=== PATIENT | female | born 1960 | race Asian ===

== ENCOUNTER 2017-03-21 12:44 | Inpatient (IN) | payer BC ==
[~2017-03-21] VITALS: Ht 157.5 cm; Wt 51.3 kg
[~2017-03-21 12:44] MED LIST: ATOR10TA15 PO; CIPR-9 PO; CYCL1TAB29 PO; GLUC15009 PO; MOBI15TA PO; MULT1TAB84 PO
[2017-03-22] MEDS ORDERED: TURM1TAB PO (12:03)
[2017-03-22] MEDS ORDERED: GABA100C4 PO (12:03)
[2017-03-22] MEDS ORDERED: CALC250T PO (12:03)
--- NOTE | 2017-03-23 17:06 | MH ---
cc: KAILASH BELTRAN MD, ROHIT DATE OF ADMISSION 03/24/2017 ADMISSION DIAGNOSIS Lumbar degenerative disk disease. HISTORY OF PRESENT ILLNESS This is a 56-year-old female who presented to us for an evaluation of low back pain with left leg numbness and subjective weakness. She states initially her symptoms started two years ago with twitching in the left lateral calf. She also gets cramping in the left buttock and left leg, especially at night. She has a numbness sensation in the posterior left leg and pain. In 2014, she had an MRI scan and was referred to pain management. She had two injections with Dr. Huddleston which helped with her low back pain and left leg pain but not with the twitching or muscle spasms. She has tried Flexeril t.i.d. which helps and has reduced this to once a day now. She currently has numbness across her low back and into the left posterior leg. She states with walking 10-15 minutes this gets worse. She has had physical therapy and states that this exacerbated her pain. She states her left leg feels weak, but she has not fallen. She underwent, in the past with Dr. Díaz, C4-C5 C5-C6 microdiskectomy and fusion and has done well with that with fairly good range of motion in her neck. PAST MEDICAL HISTORY 1. Hyperlipidemia. 2. Anterior cervical fusion in 2010. MEDICATIONS Current, 1. Atorvastatin 10 mg daily. 2. Cyclobenzaprine 10 mg daily, 3. Gabapentin 100 mg b.i.d. 4. Meloxicam 15 mg daily. This was placed on hold prior to surgical intervention 5. 6. Calcium with vitamin D. 7. Glucosamine 1500 mg. This was placed on hold prior to surgical intervention. 8. Multivitamin daily. ALLERGIES She has no known drug allergies. FAMILY HISTORY Mother is alive 83 years old has history of lung cancer and high blood pressure. Father is at 81 years old, had history of stroke. She has a sister who is alive at 59 years old SOCIAL HISTORY She is . She has two children. She does not smoke. She does not drink alcohol. REVIEW OF SYSTEMS CONSULTATION: She denies any fever or chills. EARS, NOSE AND THROAT: No pharyngitis, exudates or bloody drainage from her nose. CARDIOVASCULAR: She denies any chest pain or palpitations RESPIRATORY: No cough or shortness of breath. GENITOURINARY: No dysuria or hematuria. MUSCULOSKELETAL: Positive for low back pain. SKIN: No rashes or pruritus. NEUROLOGIC: No difficulty with speech or memory GASTROINTESTINAL: No nausea, vomiting, abdominal pain PSYCHIATRIC: No anxiety or depression symptoms ENDOCRINE: No polyuria, polydipsia. HEMATOLOGIC: No bruising or bleeding tendencies. PHYSICAL EXAMINATION HEAD: Normocephalic, atraumatic. NECK: Supple. No carotid bruits heard on auscultation. LUNGS: Clear to auscultation bilaterally. HEART: Regular rate and rhythm, normal S1, S2. ABDOMEN: Soft, nontender. Positive bowel sounds. SKIN: No cyanosis or erythema. MUSCULOSKELETAL: She has left iliopsoas giveaway weakness and left EHL weakness at 4/5, otherwise, her strength is 5/5 in the lower extremities. She has a slight limp with ambulation. NEUROLOGIC: She is awake, alert, orientated. Cranial nerves II-XII are grossly intact. Her speech is fluent. Comprehension is good. IMAGING STUDIES MRI of the lumbar spine from December 20, 2016 reveals an L4-L5 significant spinal stenosis from a combination of facet ligamentum flavum hypertrophy along with disk protrusion and a grade 1 spondylolisthesis and degenerative disk disease. IMPRESSION A 56-year-old female with a chronic history of low back pain with associated left leg pain in the L5-S1 dermatome along with neurogenic claudication symptoms. She has a significant L4-L5 spinal stenosis along with a grade 1 degenerative spondylolisthesis and degenerative disk disease with facet arthropathy and mild degenerative changes at the L5-S1 level. She has tried conservative treatment measures including physical therapy, but her symptoms continue to progress. The patient and her state that they cannot live with her current level pain and activity restriction and have tried to hold off on surgery for the past six years but continues to progressively worsen. PLAN We have discussed the procedure which would entail an L4-L5 decompression and transforaminal interbody fusion with cage and pedicle screw fixation. The procedure as well as the risk, benefit, alternative and recovery time were explained in great detail with the patient and her . We have discussed the risks involved with surgery include but not limited to bleeding, infection, muscle weakness, voice hoarseness, difficulty swallowing, heart attack, stroke, blood clots, non-fusion, scar tissue formation among others. The patient states that she understands the procedure as well as the risks involved and she is requesting that we proceed and she was therefore scheduled accordingly. Pedro Díaz MD Dictated by JUAN JOSE Shoemaker/ /4:35 PM /4:47 PM
[2017-03-24] MEDS ORDERED: SODIUM CHLORID 0.9% 500 ML IV PRN (06:15)
[2017-03-24] MEDS: SODIUM CHLOR 0.9% 1000 ML INJ 1,000 ML IV SCH (06:15)
[2017-03-24] MEDS ORDERED: INSULIN HUMAN REGULAR 1,000 UNITS/10 ML VIAL SQ PRN (06:15)
[2017-03-24] MEDS ORDERED: CHLORHEXIDINE GLUCONATE 2 % 1 PACK (2 CLOTHS) TOPICAL PRN (06:15)
[2017-03-24] MEDS ORDERED: LACTATED RINGER'S 1000 ML IV PRN (06:15)
[2017-03-24] MEDS ORDERED: POVIDONE IODINE 5% (ANTISEPSIS KIT) 4 APPLICATIONS EACH NARE PRN (06:15)
[2017-03-24] MEDS ORDERED: METOPROLOL TARTRATE 25 MG TAB PO PRN (06:15)
[2017-03-24] MEDS ORDERED: VANCOMYCIN HCL 1000 MG ON-CALL/NS 250 ML IV SCH ×2 (06:15)
[2017-03-24 06:34] VITALS: BP 106/61; PULSE 68; RESP 16; TEMP 97.7; O2SAT 100
[2017-03-24] MEDS ORDERED: THROMBIN (TOPICAL) 5,000 UNIT VIAL ONE (07:44)
[2017-03-24] MEDS ORDERED: BUPIVACAINE/EPINEPHRINE 0.25% 50 ML VIAL ONE (07:45)
[2017-03-24] MEDS ORDERED: GELFOAM SIZE 100 ONE (07:45)
[2017-03-24] MEDS ORDERED: BUPIVACAINE/EPINEPHRINE 0.5% 50 ML VIAL ONE (07:46)
[2017-03-24] MEDS ORDERED: ACETAMINOPHEN 1000 MG/100 ML VIAL IV ONE (08:19)
[2017-03-24] MEDS ORDERED: DEXAMETHASONE SOD PHOS 4 MG/ML VIAL ONE (08:19)
[2017-03-24] MEDS ORDERED: MIDAZOLAM HCL 2 MG/2 ML VIAL ONE ×2 (08:19→12:23)
[2017-03-24] MEDS: BUPIVACAINE/EPINEPHRINE 0.5% 50 ML VIAL ONE ×2 (09:41→11:40)
[2017-03-24] MEDS: VANCOMYCIN HCL 1000 MG VIAL ONE ×2 (10:28→11:40)
[2017-03-24] MEDS ORDERED: VANCOMYCIN HCL 1000 MG VIAL ONE (10:58)
[2017-03-24] MEDS ORDERED: LACTATED RINGER'S 1000 ML INJ 1,000 ML IV ONE (12:00)
[2017-03-24] MEDS ORDERED: NEOSTIGMINE 3 MG/3 ML SYR IV ONE (12:00)
[2017-03-24] MEDS ORDERED: PROPOFOL 200 MG/20 ML AMP IV ONE (12:00)
[2017-03-24] MEDS ORDERED: ONDANSETRON HCL 4 MG/2 ML VIAL IV PUSH ONE (12:00)
[2017-03-24] MEDS ORDERED: ePHEDrine/NS 25 MG/5 ML SYR IV ONE (12:00)
[2017-03-24] MEDS ORDERED: PHENYLEPH/NS 1000 MCG/10 ML SYR IV ONE (12:00)
[2017-03-24] MEDS ORDERED: PROCHLORPERAZINE INJ 10 MG/2 ML VIAL IV PUSH PRN (12:15)
[2017-03-24] MEDS ORDERED: ZOLPIDEM TARTRATE 5 MG TAB PO PRN (12:15)
[2017-03-24] MEDS ORDERED: ACETAMINOPHEN 325 MG TAB PO PRN (12:15)
[2017-03-24] MEDS ORDERED: diphenhydrAMINE HCL 50 MG/ML VIAL IV PRN (12:15)
[2017-03-24] MEDS ORDERED: CALCIUM GLUCONATE INJ 1 GM in SODIUM CHLORIDE 0.9% INJ 100 ML IV PRN (12:15)
[2017-03-24] MEDS ORDERED: SODIUM CHLORIDE 0.9% FLUSH 10 ML FLUSH IV FLUSH PRN (12:15)
[2017-03-24] MEDS ORDERED: POTASSIUM CHLOR 20 MEQ PREMIX 100 ML IV PRN (12:15)
[2017-03-24] MEDS ORDERED: ACETAMINOPHEN/HYDROcodone 325 MG/10 MG TAB PO PRN (12:15)
[2017-03-24] MEDS ORDERED: ALUMINUM/MAGNESIUM/SIMETH 30 ML CUP PO PRN (12:15)
[2017-03-24] MEDS ORDERED: RESP: ALBUTEROL 2.5 MG/3 ML NEB (PRN) NEB (12:15)
[2017-03-24] MEDS ORDERED: NALOXONE HCL 0.4 MG/ML AMP IV PRN (12:15)
[2017-03-24] MEDS ORDERED: cloNIDine HCL 0.1 MG TAB PO PRN (12:15)
[2017-03-24] MEDS ORDERED: MAGNESIUM SULFATE INJ 2 GM in SODIUM CHLORIDE 0.9% INJ 100 ML IV PRN (12:15)
[2017-03-24] MEDS ORDERED: ONDANSETRON HCL 4 MG/2 ML VIAL IV PRN (12:15)
[2017-03-24] MEDS ORDERED: MENTHOL LOZENGE BUCCAL PRN (12:15)
[2017-03-24] MEDS ORDERED: DO NOT ADM ANY ANTICOAGULANT DRUGS PRN (12:16)
[2017-03-24] MEDS ORDERED: fentaNYL CITRATE 250 MCG/5 ML AMP ONE ×2 (12:23)
--- NOTE | 2017-03-24 12:25 | PD.OP ---
MD Nasir Robison MD Operative Report Date of Surgery: March 24, 2017 Preoperative Diagnosis: Intractable low back pain with neurogenic claudication and left polyradiculopathy; L4-5 facet and ligamentum flavum hypertrophy with the degenerative disc disease and grade 1 spondylolisthesis with spinal and foraminal stenosis Postoperative Diagnosis: Same Procedure: Lumbar L4-5 transforaminal interbody fusion; L4-5 decompressive laminectomies; L4-5 pedicle screw fixation; L4-5 interbody cage placement; microsurgical technique Anesthesia: Gen. endotracheal by Maria Elena Short Surgeon: Pedro Díaz M.D. Legislative Director(s): Consuelo Roberts Operation and Findings: Following initiation of general endotracheal anesthesia, the patient had a Forrester catheter placed along with sequential compression devices. A gram of vancomycin was administered intravenously and he was turned in a prone position on a Umair frame, on a Gaurav table, and all pressure points adequately padded. The lumbosacral region was then prepped with Chloraprep and sterilely draped with Ioban along the usual sterile draping. A midline skin incision was then made extending from the L4-L5 level after infiltrating the skin with 0.5% Marcaine with epinephrine solution extending down through the fascia. The muscle fibers were split using avascular fatty plane and detached from the underlying facets, transverse process and lateral portion of lamina on the left side and a self-retaining retractor used for exposure. Intraoperative fluoroscopy was also used for level of confirmation along with microscope magnification for further dissection. There was significant facet and ligamentum flavum hypertrophy noted at the L4-5 levels. Left L4-5 facet medial portion was resected with a drill bit along with the lamina and there was severe foraminal and lateral recess stenosis from hypertrophied ligamentum flavum and facet which were decompressed bilaterally through the usual lateral approach. There was disc degeneration along with disc protrusion a as well as spondylolisthesis also leading to the foraminal stenosis. Epidural hemostasis was achieved with bipolar cautery and Gelfoam with thrombin. Subsequently entered into the disc space at the L4-5 level with a #15 blade and ang were used for discectomy. I then placed PEEK cage packed with local autograft bone and more local autograft bone was packed adjacent to the cage in interspace for added interbody fusion. With placement of the cage, I was able to distract the interspace and opened up the foramen further bilaterally. Subsequently in order to facilitate the fusion and provide stabilization, pedicle screw fixation was undertaken using [place] spine screws on entry point at the left L4 -5 levels at the junction of the transverse process and facet. Subsequently using AP and lateral fluoroscopy tap and screw placement. The screws were then connected with a abbi and locked in place with caps. The construct appeared very secure at this point. The area was then copiously irrigated with Vancomycin solution and powder. The retractors were removed and the bipolar cautery used for hemostasis. The muscle fascia was then approximated using 2-0 Vicryl interrupted stitches and then 3-0 Vicryl subcuticular stitches also placed in interrupted fashion. The final skin closure was completed with Mastisol and Steri-Strips. A sterile dressing was then applied. The patient then turned in supine position, extubated and taken to recovery room. There were no intraoperative complications. All sponge and needle counts were correct at the end of procedure. Estimated blood loss about 50 ml. Pedro Díaz MD March 24, 2017 12:25
--- NOTE | 2017-03-24 12:27 | RADRPT ---
EXAM DATE/TIME: 03/24/2017 09:13 [place] COMPARISON: No previous studies available for comparison. INDICATIONS : Fusion L4,L5 with screws and abbi placement. MEDICAL HISTORY : None. SURGICAL HISTORY : None. ENCOUNTER: Initial ACUITY: 1 day PAIN SCORE: Non-responsive. LOCATION: Lumbar spine. FINDINGS: Patient status post unilateral transpedicular fixation at L4-5. Alignment is anatomic. CONCLUSION: Anatomic alignment. Aly Abarca MD FACR on March 24, 2017 at 12:14 Board Certified Radiologist. This report was verified electronically.
[2017-03-24] MEDS: CYCLOBENZAPRINE HCL 10 MG TAB PO SCH ×2 (13:00→18:00)
[2017-03-24 13:26] LABS: AUTOMATED NEUTROPHIL # 2.8 TH/MM3 (1.8-7.7); BASOPHIL % 0.3 % (0.0-2.0); EOSINOPHIL % 0.1 % (0.0-4.0); HEMATOCRIT 35.7 % (35.0-46.0); HEMO FLAGS DIFF FINAL; LYMPH % 11.7 % (9.0-44.0); LYMPHOCYTE # 0.4 TH/MM3 (1.0-4.8); MEAN CELL VOLUME 85.4 FL (80.0-100.0); MEAN CORPUSCULAR HEMOGLOBIN 27.8 PG (27.0-34.0); MEAN CORPUSCULAR HGB CONC 32.5 % (32.0-36.0); MONO % 1.6 % (0.0-8.0); NEUT % 86.3 % (16.0-70.0); PLATELET COUNT 172 TH/MM3 (150-450); RED BLOOD COUNT 4.18 MIL/MM3 (4.00-5.30); RED CELL DISTRIBUTION WIDTH 13.6 % (11.6-17.2); WHITE BLOOD COUNT 3.3 TH/MM3 (4.0-11.0)
[2017-03-24] MEDS ORDERED: MORPHINE SULFATE 30 MG/30 ML PCA IV SCH (13:30)
[2017-03-24] MEDS: NS + KCL 20 MEQ INJ 1,000 ML IV SCH (13:34)
[2017-03-24 13:47] LABS: BICARBONATE 23.9 MEQ/L (21.0-32.0); MAGNESIUM 2.1 MG/DL (1.5-2.5); POTASSIUM 3.7 MEQ/L (3.5-5.1)
[2017-03-24 15:00] VITALS: BP 107/59; PULSE 70; RESP 16; TEMP 97.4; O2SAT 97
[2017-03-24] MEDS: PCA - TOTAL MG MORPHINE DELIVERED PER SHIFT SCH ×2 (15:49→22:00)
[2017-03-24] MEDS: DOCUSATE SODIUM 100 MG CAP PO SCH (19:59)
[2017-03-24] MEDS: MAGNESIUM HYDROXIDE SUSP 30 ML CUP PO PRN (19:59)
[2017-03-24 20:00] VITALS: BP 104/64; PULSE 65; RESP 17; TEMP 96; O2SAT 95
[2017-03-24] MEDS: ATORVASTATIN 10 MG TAB PO SCH (20:00)
[2017-03-24] MEDS: CIPROFLOXACIN 500 MG TAB PO SCH (20:00)
[2017-03-24] MEDS: GABAPENTIN 100 MG CAP PO SCH (20:00)
[2017-03-24] MEDS: SODIUM CHLORIDE 0.9% FLUSH 10 ML FLUSH IV FLUSH SCH (20:02)
[2017-03-25] VITALS (7 sets, daily range): BP systolic 89–111; BP diastolic 50–64; PULSE 67–83; RESP 17–18; TEMP 97.1–98.8; O2SAT 96–100
[2017-03-25] MEDS: ACETAMINOPHEN/HYDROcodone 325 MG/10 MG TAB PO PRN ×5 (00:35→20:23)
[2017-03-25] MEDS: NS + KCL 20 MEQ INJ 1,000 ML IV SCH (00:35)
[2017-03-25] MEDS: PCA - TOTAL MG MORPHINE DELIVERED PER SHIFT SCH (05:19)
[2017-03-25] MEDS: SODIUM CHLOR 0.9% 1000 ML INJ 1,000 ML IV SCH (05:40)
[2017-03-25] MEDS ORDERED: NON-FORMULARY DRUG (Turmeric (Curcuma Longa) (Turmeric) 1 CAP) PO SCH (09:00)
--- NOTE | 2017-03-25 09:09 | HHI.NSPN ---
(Tereso Cano) History Chief Complaint: Mild incisional pain. (Tereso Cano) Interval History 03/25/17: Pt awake and alert. States cramps and pain in legs resolved. Mild incisional pain. 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 (Tereso Cano) Review of Systems General: Negative for: fever, chills, insomnia Respiratory: Negative for: shortness of breath, cough, sputum Cardiovascular: Negative for: chest pain Gastrointestinal: Negative for: nausea, vomitting, diarrhea, constipation ( Tereso Cano) Exam Results Vital Signs Date Time Temp Pulse Resp B/P Pulse Ox O2 Delivery O2 Flow Rate FiO2 03/25/17 05:39 18 03/25/17 04:00 97.1 67 94/54 100 03/25/17 03:48 Nasal Cannula 2.00 Intake and Output 03/24/17 03/24/17 03/25/17 08:00 16:00 00:00 Intake Total 1958 ml 696 ml Output Total 425 ml 500 ml Balance 1533 ml 196 ml (Tereso Cano) Physical Examination Resp: CTA bilaterally Heart: NSR no murmurs Abd: Soft positive bs Skin: Bandage changed by RN. report clean and dry. Steristips in place. Muscle: pt ambulating with PT around unit. 5/5 strength in LEs. Neuro: Pt awake and alert. Follows commands. Speech clear and appropriate. ( Tereso Cano) Lab, Micro, Other Results Last Impressions Lumbar Spine X-Ray 03/24/17 0000 Signed Impressions: Service Date/Time: Friday, March 24, 2017 09:13 - CONCLUSION: Anatomic alignment. Aly Abarca MD FACR Laboratory Tests Test 03/24/17 13:15 White Blood Count 3.3 TH/MM3 Red Blood Count 4.18 MIL/MM3 Hemoglobin 11.6 GM/DL Hematocrit 35.7 % Mean Corpuscular Volume 85.4 FL Mean Corpuscular Hemoglobin 27.8 PG Mean Corpuscular Hemoglobin 32.5 % Concent Red Cell Distribution Width 13.6 % Platelet Count 172 TH/MM3 Mean Platelet Volume 7.6 FL Neutrophils (%) (Auto) 86.3 % Lymphocytes (%) (Auto) 11.7 % Monocytes (%) (Auto) 1.6 % Eosinophils (%) (Auto) 0.1 % Basophils (%) (Auto) 0.3 % Neutrophils # (Auto) 2.8 TH/MM3 Lymphocytes # (Auto) 0.4 TH/MM3 Monocytes # (Auto) 0.1 TH/MM3 Eosinophils # (Auto) 0.0 TH/MM3 Basophils # (Auto) 0.0 TH/MM3 CBC Comment DIFF FINAL Differential Comment Sodium Level 141 MEQ/L Potassium Level 3.7 MEQ/L Chloride Level 108 MEQ/L Carbon Dioxide Level 23.9 MEQ/L Anion Gap 9 MEQ/L Blood Urea Nitrogen 14 MG/DL Creatinine 0.92 MG/DL Estimat Glomerular Filtration 63 ML/MIN Rate Random Glucose 128 MG/DL Calcium Level 8.3 MG/DL Magnesium Level 2.1 MG/DL 03/24/17 03/24/17 03/25/17 15:00 23:00 07:00 Intake Total 1700 ml 954 ml 919 ml Output Total 425 ml 500 ml 1200 ml Balance 1275 ml 454 ml -281 ml Intake Oral 240 ml 360 ml IV Total 100 ml 714 ml 559 ml Other 1600 ml Output Urine Total 325 ml 500 ml 1200 ml Estimated Blood Loss 100 ml # Bowel Movements 0 0 (Tereso Cano) Medical Decision Making Impression and Plan A: 56 y/o FM s/p L4/L5 TLIF with cage and pedicle screw fixation P: Continue with pain control. 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 I reviewed and agree with the findings presented. I attest that I had a [id number] encounter with the patient on the same day, and personally performed and documented my assessment and findings in the medical record. 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 Complains of constipation despite use of Colace and Miralax. Will administer Dulcolax suppository. Overall relates that she is already feeling much better with the no numbness or paresthesias or extremity symptoms when she was walking. Updated at bedside. (Pedro Díaz MD) Tereso Cano March 25, 2017 09:09 Pedro Díaz MD March 25, 2017 12:36
[2017-03-25] MEDS: POLYETHYLENE GLYCOL 17 GM PKG PO SCH (09:16)
[2017-03-25] MEDS: CYCLOBENZAPRINE HCL 10 MG TAB PO SCH ×3 (09:17→20:22)
[2017-03-25] MEDS: DOCUSATE SODIUM 100 MG CAP PO SCH ×2 (09:17→20:22)
[2017-03-25] MEDS: CIPROFLOXACIN 500 MG TAB PO SCH ×2 (09:17→20:22)
[2017-03-25] MEDS: GABAPENTIN 100 MG CAP PO SCH ×2 (09:18→20:22)
[2017-03-25] MEDS: SODIUM CHLORIDE 0.9% FLUSH 10 ML FLUSH IV FLUSH SCH ×2 (09:19→20:24)
[2017-03-25] MEDS: PANTOPRAZOLE SOD 40 MG DELAYED RELEASE TAB PO SCH (09:19)
[2017-03-25] MEDS ORDERED: BISACODYL 10 MG SUPP RECTAL ONE (12:30)
[2017-03-25] MEDS: MAGNESIUM HYDROXIDE SUSP 30 ML CUP PO PRN (20:21)
[2017-03-25] MEDS: ATORVASTATIN 10 MG TAB PO SCH (20:22)
[2017-03-26] VITALS (7 sets, daily range): BP systolic 84–118; BP diastolic 50–89; PULSE 71–100; RESP 16–18; TEMP 96.9–99.6; O2SAT 93–99
[2017-03-26] MEDS: PANTOPRAZOLE SOD 40 MG DELAYED RELEASE TAB PO SCH (08:20)
[2017-03-26] MEDS: DOCUSATE SODIUM 100 MG CAP PO SCH ×2 (08:20→20:52)
[2017-03-26] MEDS: ACETAMINOPHEN/HYDROcodone 325 MG/10 MG TAB PO PRN ×4 (08:20→22:14)
[2017-03-26] MEDS: GABAPENTIN 100 MG CAP PO SCH ×2 (08:20→20:51)
[2017-03-26] MEDS: CYCLOBENZAPRINE HCL 10 MG TAB PO SCH ×3 (08:20→20:51)
[2017-03-26] MEDS: CIPROFLOXACIN 500 MG TAB PO SCH ×2 (08:20→20:51)
[2017-03-26] MEDS: POLYETHYLENE GLYCOL 17 GM PKG PO SCH (08:20)
[2017-03-26] MEDS: SODIUM CHLORIDE 0.9% FLUSH 10 ML FLUSH IV FLUSH SCH ×2 (08:22→20:52)
--- NOTE | 2017-03-26 08:50 | HHI.NSPN ---
(Tereso Cano) History Chief Complaint: Mild incisional pain. (Tereso Cano) Interval History 03/25/17: Pt awake and alert. States cramps and pain in legs resolved. Mild incisional pain. Wants to stop Morphine COMMODITIES TRADER. 03/26/17: Pt awake and alert. Had episode of vasovagal this morning while going to the bathroom where she lost consciousness. She denies any chest pain or sob. BP is now in the 90s which is normal for her. Pt states she has had syncope on numerous occasions in her life. She has some intermittent left leg discomfort/ cramps. (Tereso Cano) Review of Systems General: Negative for: fever, chills, insomnia Respiratory: Negative for: shortness of breath, cough, sputum Cardiovascular: Negative for: chest pain Gastrointestinal: Negative for: nausea, vomitting, diarrhea, constipation ( Tereso Cano) Exam Results Vital Signs Date Time Temp Pulse Resp B/P Pulse Ox O2 Delivery O2 Flow Rate FiO2 03/26/17 08:00 99.2 88 18 95/50 99 03/25/17 03:48 Nasal Cannula 2.00 Intake and Output 03/25/17 03/25/17 03/25/17 07:59 15:59 23:59 Intake Total 919 ml 960 ml 240 ml Output Total 1200 ml Balance -281 ml 960 ml 240 ml (Tereso Cano) Physical Examination Resp: CTA bilaterally Heart: NSR no murmurs Abd: Soft positive bs Skin: Bandage changed by RN. report clean and dry. Steristips in place. Muscle: pt ambulating with PT around unit. 5/5 strength in LEs. Neuro: Pt awake and alert. Follows commands. Speech clear and appropriate. ( Tereso Cano) Lab, Micro, Other Results 03/25/17 03/25/17 03/26/17 14:59 22:59 06:59 Intake Total 960 ml 240 ml 240 ml Balance 960 ml 240 ml 240 ml Intake Oral 960 ml 240 ml 240 ml # Voids 4 2 1 # Bowel Movements 0 0 0 (Tereso Cano) Medical Decision Making Impression and Plan A: 56 y/o FM s/p L4/L5 TLIF with cage and pedicle screw fixation P: Continue with pain control. Continue with PT Obtain a 12 lead EKG to see if different than preop. Place pt on Tele. CBC and BMP (Tereso Cano) Attending Statement The exam, history, and the medical decision-making described in the above note were completed with the assistance of the mid-level provider. I reviewed and agree with the findings presented. I attest that I had a [id number] encounter with the patient on the same day, and personally performed and documented my assessment and findings in the medical record. Sitting up in chair and ambulated a few times this morning. She had a vasovagal episode while urinating in the bathroom but did not fall. EKG is normal. Electrolytes and hemoglobin is also normal. Denies any dizziness or lightheadedness. Main complaint is constipation but she stated that she is always had issues with this at home also. We'll try magnesium citrate. Anticipate discharge tomorrow if continues to do well. Updated at bedside. (Pedro Díaz MD) Tereso Cano March 26, 2017 08:50 Pedro Díaz MD March 26, 2017 11:20
[2017-03-26 10:34] LABS: AUTOMATED NEUTROPHIL # 6.6 TH/MM3 (1.8-7.7); BASOPHIL % 0.2 % (0.0-2.0); EOSINOPHIL % 0.4 % (0.0-4.0); HEMATOCRIT 35.3 % (35.0-46.0); HEMO FLAGS DIFF FINAL; LYMPH % 12.8 % (9.0-44.0); LYMPHOCYTE # 1.1 TH/MM3 (1.0-4.8); MEAN CELL VOLUME 84.2 FL (80.0-100.0); MEAN CORPUSCULAR HEMOGLOBIN 28.3 PG (27.0-34.0); MEAN CORPUSCULAR HGB CONC 33.6 % (32.0-36.0); MONO % 6.5 % (0.0-8.0); NEUT % 80.1 % (16.0-70.0); PLATELET COUNT 202 TH/MM3 (150-450); RED CELL DISTRIBUTION WIDTH 13.2 % (11.6-17.2); WHITE BLOOD COUNT 8.3 TH/MM3 (4.0-11.0)
[2017-03-26 11:13] LABS: ALT (GPT) 31 U/L (10-53); ANION GAP 5 MEQ/L (5-15); AST (GOT) 47 U/L (15-37); BICARBONATE 29.7 MEQ/L (21.0-32.0); BLOOD UREA NITROGEN 12 MG/DL (7-18); CHLORIDE 102 MEQ/L (98-107); GLOMERULAR FILTRATION RATE 78 ML/MIN (>89); POTASSIUM 3.9 MEQ/L (3.5-5.1); SODIUM (NA) 137 MEQ/L (136-145)
[2017-03-26 11:21] LABS: ALKALINE PHOSPHATASE 47 U/L (45-117); TOTAL BILIRUBIN ADULT 0.5 MG/DL (0.2-1.0)
[2017-03-26] MEDS ORDERED: MAGNESIUM CITRATE SOLN 300 ML BTL PO ONE (11:30)
--- NOTE | 2017-03-26 14:56 | EKG ---
Date Performed: 03/26/2017 Time Performed: 10:33:31 PTAGE: 56 years EKG: Sinus rhythm NORMAL ECG NO PREVIOUS TRACING DOCTOR: Machelle Kraft Interpretating Date/Time 03/26/2017 14:56:11
[2017-03-26] MEDS: ATORVASTATIN 10 MG TAB PO SCH (20:52)
[2017-03-27] VITALS (8 sets, daily range): BP systolic 86–108; BP diastolic 54–65; PULSE 70–86; RESP 14–18; TEMP 97.5–98.8; O2SAT 95–100
[2017-03-27] MEDS: ACETAMINOPHEN/HYDROcodone 325 MG/10 MG TAB PO PRN ×3 (06:24→20:54)
[2017-03-27] MEDS: SODIUM CHLORIDE 0.9% FLUSH 10 ML FLUSH IV FLUSH SCH ×2 (09:00→20:53)
[2017-03-27] MEDS: GABAPENTIN 100 MG CAP PO SCH ×2 (09:00→20:53)
[2017-03-27] MEDS: DOCUSATE SODIUM 100 MG CAP PO SCH ×2 (09:06→20:53)
[2017-03-27] MEDS: POLYETHYLENE GLYCOL 17 GM PKG PO SCH (09:06)
[2017-03-27] MEDS: CYCLOBENZAPRINE HCL 10 MG TAB PO SCH ×3 (09:06→17:46)
[2017-03-27] MEDS: CIPROFLOXACIN 500 MG TAB PO SCH ×2 (09:06→20:54)
[2017-03-27] MEDS: PANTOPRAZOLE SOD 40 MG DELAYED RELEASE TAB PO SCH (09:06)
[2017-03-27] MEDS ORDERED: SOD PHOSPHATE/SOD BIPHOSPHATE (ADULT) ENEMA 133ML RECTAL ONE (09:30)
--- NOTE | 2017-03-27 09:31 | HHI.NSPN ---
History Chief Complaint: Mild incisional pain. Interval History 03/25/17: Pt awake and alert. States cramps and pain in legs resolved. Mild incisional pain. 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 03/26/17: Pt awake and alert. Had episode of vasovagal this morning while going to the bathroom where she lost consciousness. She denies any chest pain or sob. BP is now in the 90s which is normal for her. Pt states she has had syncope on numerous occasions in her life. She has some intermittent left leg discomfort/ cramps. 03/27/17: pt awake and alert. Incisional pain improving. Complains of constipation. No radiculopathy, paresthesias, chest pain, or sob. Review of Systems General: Negative for: fever, chills, insomnia Respiratory: Negative for: shortness of breath, cough, sputum Cardiovascular: Negative for: chest pain Gastrointestinal: Positive for: constipation, Negative for: nausea, vomitting , diarrhea Exam Results Vital Signs Date Time Temp Pulse Resp B/P Pulse Ox O2 Delivery O2 Flow Rate FiO2 03/27/17 08:00 98.0 76 18 86/54 96 03/25/17 03:48 Nasal Cannula 2.00 Intake and Output 03/26/17 03/26/17 03/27/17 08:00 16:00 00:00 Intake Total 240 ml 720 ml 240 ml Balance 240 ml 720 ml 240 ml Physical Examination Resp: CTA bilaterally Heart: NSR no murmurs Abd: Mild firmness. positive bs Skin: Bandage changed by RN. I looked at it myself and is clean and dry. No erythema or drainage. Steristips in place. Muscle: pt ambulating with PT around unit. 5/5 strength in LEs. Neuro: Pt awake and alert. Follows commands. Speech clear and appropriate. Lab, Micro, Other Results Last Impressions Lumbar Spine X-Ray 03/24/17 0000 Signed Impressions: Service Date/Time: Friday, March 24, 2017 09:13 - CONCLUSION: Anatomic alignment. Aly Abarca MD FACR Laboratory Tests Test 03/26/17 10:03 White Blood Count 8.3 TH/MM3 Red Blood Count 4.20 MIL/MM3 Hemoglobin 11.9 GM/DL Hematocrit 35.3 % Mean Corpuscular Volume 84.2 FL Mean Corpuscular Hemoglobin 28.3 PG Mean Corpuscular Hemoglobin 33.6 % Concent Red Cell Distribution Width 13.2 % Platelet Count 202 TH/MM3 Mean Platelet Volume 7.8 FL Neutrophils (%) (Auto) 80.1 % Lymphocytes (%) (Auto) 12.8 % Monocytes (%) (Auto) 6.5 % Eosinophils (%) (Auto) 0.4 % Basophils (%) (Auto) 0.2 % Neutrophils # (Auto) 6.6 TH/MM3 Lymphocytes # (Auto) 1.1 TH/MM3 Monocytes # (Auto) 0.5 TH/MM3 Eosinophils # (Auto) 0.0 TH/MM3 Basophils # (Auto) 0.0 TH/MM3 CBC Comment DIFF FINAL Differential Comment Sodium Level 137 MEQ/L Potassium Level 3.9 MEQ/L Chloride Level 102 MEQ/L Carbon Dioxide Level 29.7 MEQ/L Anion Gap 5 MEQ/L Blood Urea Nitrogen 12 MG/DL Creatinine 0.76 MG/DL Estimat Glomerular Filtration 78 ML/MIN Rate Random Glucose 136 MG/DL Calcium Level 8.8 MG/DL Total Bilirubin 0.5 MG/DL Aspartate Amino Transf 47 U/L (AST/SGOT) Alanine Aminotransferase 31 U/L (ALT/SGPT) Alkaline Phosphatase 47 U/L Total Protein 6.6 GM/DL Albumin 3.7 GM/DL 03/26/17 03/26/17 03/27/17 15:00 23:00 07:00 Intake Total 720 ml 240 ml 120 ml Balance 720 ml 240 ml 120 ml Intake Oral 720 ml 240 ml 120 ml # Voids 2 1 1 # Bowel Movements 0 0 0 Medical Decision Making Impression and Plan A: 56 y/o FM s/p L4/L5 TLIF with cage and pedicle screw fixation P: Fleets enema. Likely discharge today. Tereso Cano March 27, 2017 09:31
[2017-03-27] MEDS ORDERED: SODIUM CHLORID 0.9% 500 ML INJ 500 ML IV ONE (13:30)
[2017-03-27] MEDS: LACTULOSE SYRUP 20 GM/30 ML CUP PO SCH ×2 (17:46→20:55)
[2017-03-27] MEDS: ATORVASTATIN 10 MG TAB PO SCH (20:55)
[2017-03-28 04:00] VITALS: BP 78/52; PULSE 75; RESP 16; TEMP 97.8; O2SAT 96
[2017-03-28] MEDS: ACETAMINOPHEN/HYDROcodone 325 MG/10 MG TAB PO PRN ×2 (06:04→12:53)
[2017-03-28 08:00] VITALS: BP 82/58; PULSE 76; RESP 16; TEMP 97.7; O2SAT 96
[2017-03-28] MEDS: PANTOPRAZOLE SOD 40 MG DELAYED RELEASE TAB PO SCH (08:55)
[2017-03-28] MEDS: CYCLOBENZAPRINE HCL 10 MG TAB PO SCH ×2 (08:55→12:52)
[2017-03-28] MEDS: GABAPENTIN 100 MG CAP PO SCH (08:55)
[2017-03-28] MEDS: POLYETHYLENE GLYCOL 17 GM PKG PO SCH (08:55)
[2017-03-28] MEDS: CIPROFLOXACIN 500 MG TAB PO SCH (08:55)
[2017-03-28] MEDS: DOCUSATE SODIUM 100 MG CAP PO SCH (08:58)
[2017-03-28] MEDS: LACTULOSE SYRUP 20 GM/30 ML CUP PO SCH ×2 (08:58→13:00)
[2017-03-28] MEDS: SODIUM CHLORIDE 0.9% FLUSH 10 ML FLUSH IV FLUSH SCH (08:59)
--- NOTE | 2017-03-28 10:14 | HHI.NSPN ---
(Tereso Cano) History Chief Complaint: Mild incisional pain. (Tereso Cano) Interval History 03/25/17: Pt awake and alert. States cramps and pain in legs resolved. Mild incisional pain. 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 03/26/17: Pt awake and alert. Had episode of vasovagal this morning while going to the bathroom where she lost consciousness. She denies any chest pain or sob. BP is now in the 90s which is normal for her. Pt states she has had syncope on numerous occasions in her life. She has some intermittent left leg discomfort/ cramps. 03/27/17: pt awake and alert. Incisional pain improving. Complains of constipation. No radiculopathy, paresthesias, chest pain, or sob. 03/28/17: Pt awake and alert. States feeling better today. Had BM and has some diarrhea this morning. No radiculopathy in LEs. No dizziness but bp still running low. (Tereso Cano) Review of Systems General: Negative for: fever, chills, insomnia Respiratory: Negative for: shortness of breath, cough, sputum Cardiovascular: Negative for: chest pain Gastrointestinal: Negative for: nausea, vomitting, diarrhea, constipation ( Tereso Cano) Exam Results Vital Signs Date Time Temp Pulse Resp B/P Pulse Ox O2 Delivery O2 Flow Rate FiO2 03/28/17 08:00 97.7 76 16 82/58 96 03/27/17 19:01 Room Air 03/25/17 03:48 2.00 Intake and Output 03/27/17 03/27/17 03/27/17 07:59 15:59 23:59 Intake Total 120 ml 1460 ml Balance 120 ml 1460 ml (Tereso Cano) Physical Examination Resp: CTA bilaterally Heart: NSR no murmurs Abd: Mild firmness. positive bs Skin: No cyanosis or erythema. Muscle: pt ambulating with PT around unit. 5/5 strength in LEs. Neuro: Pt awake and alert. Follows commands. Speech clear and appropriate. ( Tereso Cano) Lab, Micro, Other Results 03/27/17 03/27/17 03/28/17 14:59 22:59 06:59 Intake Total 960 ml 500 ml 200 ml Balance 960 ml 500 ml 200 ml Intake Oral 960 ml 200 ml IV Total 500 ml # Voids 3 2 # Bowel Movements 0 1 0 (Tereso Cano) Medical Decision Making Impression and Plan A: 56 y/o FM s/p L4/L5 TLIF with cage and pedicle screw fixation D/C held secondary to pt having another syncopal episode after BM. P: Recheck BP has been low this morning Possible D/C (Tereso Cano) Attending Statement The exam, history, and the medical decision-making described in the above note were completed with the assistance of the mid-level provider. I reviewed and agree with the findings presented. I attest that I had a [id number] encounter with the patient on the same day, and personally performed and documented my assessment and findings in the medical record. (Pedro Díaz MD) Tereso Cano March 28, 2017 10:14 Pedro Díaz MD March 28, 2017 12:37
[2017-03-28 10:44] VITALS: BP 102/77; PULSE 94; RESP 14; O2SAT 97
[2017-03-28] MEDS ORDERED: HYDR-3583 PO (11:27)
--- NOTE | 2017-03-28 11:28 | HHI.FF ---
Face to Face Verification Diagnosis: (1) Low back pain (2) Facet arthropathy, lumbar (3) Lumbar stenosis with neurogenic claudication (4) Lumbar degenerative disc disease (5) Spondylolisthesis of lumbar region Home Health Nursing Order: Wound care and dressing changes Nursing assessment with vital signs I have seen patient Sukhwinder Carter on 03/28/17. My clinical findings support the need for the requested home health care services because: Deconditioned w/ increased weakness High risk of falls I certify that my clinical findings support that this patient is homebound because: Post-op weakness Unable to use public transportation Tereso Cano March 28, 2017 11:28
[2017-03-28 12:00] VITALS: BP 95/66; PULSE 84; RESP 16; TEMP 98.3; O2SAT 99
--- NOTE | 2017-04-15 12:43 | HHI.DS ---
Discharge Summary Admission Date March 24, 2017 at 05:52 Discharge Date: March 28, 2017 Admitting Diagnosis (1) Low back pain Diagnosis: Principal ICD Code: M54.5 (2) Facet arthropathy, lumbar Diagnosis: Principal ICD Code: M12.88 (3) Lumbar stenosis with neurogenic claudication Diagnosis: Principal ICD Code: M48.06 (4) Lumbar degenerative disc disease Diagnosis: Principal ICD Code: M51.36 (5) Spondylolisthesis of lumbar region Diagnosis: Principal ICD Code: M43.16 Procedures L4/L5 transforaminal interbody fusion; L4/L5 decompressive laminectomy; L4/L5 pedicle screw fixation; L4/L5 interbody cage placement by Dr. Díaz on 03/24/17. Brief History Is a 56-year-old female who presented to us for evaluation of low back pain with left leg numbness and subjective weakness. She initially states her symptoms started 2 years ago with twitching in the left lateral calf. She also gets cramps in the left buttock and left leg especially at night. She has numbness in the posterior left leg and pain. In 2014 she had an MRI scan and she was referred to pain management. She had [address] Mckeon which helped her low back pain and left leg pain but not with twitching or muscle spasms. She has tried Flexeril 3 times a day which helps and reduce this to once a day now. She has numbness across her low back and into the left posterior leg. She states with walking tenderness 15 minutes this gets worse. She has had physical therapy and states this exacerbated her pain. Her left leg feels weak but she has not fallen. She underwent a C4/C5 and C5/C6 anterior cervical fusion with Dr. Díaz in the past and did well with this. Imaging MRI of the lumbar spine from 12/20/16 revealed a L4/L5 significant spinal stenosis from a combination of facet ligamentum flavum hypertrophy along with disc protrusion and a grade 1 spondylosis and degenerative disc disease. Hospital Course Patient underwent the above-noted procedure performed by Dr. Díaz. There was no intraoperative complications. Postoperatively patient was admitted to the medical surgical floor. Physical therapy was consult. Patient's activity status was increased. Patients. Pain was controlled with a [employer] and this was discontinued. Patient had an episode of vasovagal when urinating in the bathroom. She did not fall. EKG was obtained which was normal electrolytes and CBC are also normal. Patient received multiple medications for her constipation. Patient had another syncopal episode after a bowel movement. Patient states that she has a history of recurrent vagal episodes. Her activity status was increased with no further vagal episodes and she was discharged home in stable condition. Pt Condition on Discharge: Stable Discharge Disposition: Discharge Home Discharge Instructions DIET: Follow Instructions for: As Tolerated, No Restrictions ACTIVITIES You can perform: Shower Only-No Bath Activities to Avoid: Lifting/Bending, Prolonged Standing, Strenuous Activity, Bathing, Driving Follow up Referrals: Appointment for Follow Up with Pedro Díaz MD New Medications: Hydrocodone-Acetaminophen (Hydrocodone-Acetaminophen) 10-325 mg Tab 1 TAB PO Q4H PRN PAIN SCALE 1 TO 5 #60 TAB Continued Medications: Atorvastatin (Atorvastatin) 10 Mg Tab 5 MG PO HS Cholesterol Management #30 Ref 0 TAB Calcium Citrate (Calcium Citrate) 250 Mg Tab 400 MG PO Calcium Supplement Ref 0 TAB Cyclobenzaprine (Flexeril) 10 Mg Tab 10 MG PO TID Muscle Spasm #90 Ref 0 TAB Gabapentin (Gabapentin) 100 Mg Cap 100 MG PO BID Pain Management #60 Ref 0 CAP Discontinued Medications: Ciprofloxacin (Cipro) 500 Mg Tab 500 MG PO BID Infection #14 Ref 0 TAB Glucosamine (Glucosamine) 1,500 Mg Tab 1500 MG PO DAILY Herbal Supplements Ref 0 TAB Meloxicam (Mobic) 15 Mg Tab 15 MG PO DAILY Arthritis pain Ref 0 TAB Turmeric (Curcuma Longa) (Turmeric) 500 Mg Tab 1 CAP PO DAILY Nutritional Supplement Tereso Cano Apr 15, 2017 12:42
== END 2017-03-28 14:40 | disposition home health service (06) | DRG 460 ==
LOC: HSDI 03-24 05:52 → N06B 03-24 14:03
PROVIDERS: ADMIT Neurological Surgery; ATTEND Neurological Surgery
PROC: 0ST20ZZ Resection of Lumbar Vertebral Disc, Open Approach (ICD-10-PCS; 2017-03-24)
PROC: 0SG00A1 (ICD-10-PCS; principal; 2017-03-24 08:42)
DX: M51.16 Intervertebral disc disorders with radiculopathy, lumbar region (principal); R55 Syncope and collapse; E78.5 Hyperlipidemia, unspecified; M48.06 Spinal stenosis, lumbar region; M43.10 Spondylolisthesis, site unspecified; K59.00 Constipation, unspecified
CPT/HCPCS: 72100; 76000; 80048; 80053; 83735; 85025; 86850; 86900; 86901; 93005; 94150; C1713; J0131; J0690; J1100; J2250; J2270; J2370; J2405; J2710; J3010; J3370; J3480; J7040; J7050; J7120; L0627

== ENCOUNTER → 2017-03-22 | Outpatient (CLI) | payer BC ==
[~2017-03-22] MED LIST changes: +CALC250T PO; +CALC600T34 PO; +FEXO180 PO; +FISH1000 PO; +GABA100C4 PO; +HYDR-3583 PO; +LORTAB PO; +MEVA40TA PO; +TURM1TAB PO
== END ==
LOC: CPRE 11:44
PROVIDERS: ATTEND Neurological Surgery
DX: Z01.812 Encounter for preprocedural laboratory examination (principal)